=== PATIENT | female | born 1995 | race African-American/Black ===

== ENCOUNTER 2017-11-05 09:52 | Emergency (ER) | payer MEDICAID, OTHER ==
[~2017-11-05] VITALS: Ht 160 cm; Wt 85.0 kg
[~2017-11-05 09:52] MED LIST: VICODIN
[2017-11-05 11:24] VITALS: BP 113/34
[2017-11-05] MEDS ORDERED: SODIUM CHLORIDE 0.9% 1,000 ML IV ONE (11:29)
[2017-11-05] MEDS ORDERED: METOCLOPRAMIDE HCL 10MG/2ML VIAL IV ONE (11:30)
[2017-11-05] MEDS ORDERED: ACETAMINOPHEN 325MG TABLET PO ONE (11:45)
[2017-11-05 11:48] LABS: BASOPHILS % 0.6 % (0.0-2.0); EOSINOPHILS % 1.5 % (0.0-5.0); HEMOGLOBIN. 11.8 g/dL (12.0-16.0); LYMPHOCYTES % 31.4 % (20.0-50.0); MEAN CORPUSCULAR HEMOGLOBIN 31.5 pg (28.0-32.0); MEAN CORPUSCULAR VOLUME 91.2 fL (81.0-99.0); MEAN PLATELET VOLUME 8.1 fl (7.4-10.4); MONOCYTES % 7.6 % (2.0-8.0); NEUTROPHILS % 58.9 % (40.0-76.0); PLATELET 249 x1000/uL (130-400); RED BLOOD CELL COUNT 3.73 mill/uL (4.2-5.4); RED CELL DISTRIBUTION WIDTH 13.1 % (11.6-14.6)
[2017-11-05] MEDS ORDERED: ERYTHROMYCIN LACTOBIONATE 500 MG in SODIUM CHLORIDE 0.9% 100 ML IV STA (11:48)
[2017-11-05 11:54] LABS: CHLORIDE 106 mEq/L (98-107)
[2017-11-05 11:55] LABS: INR 1.1; PROTHROMBIN TIME 11.5 sec (9.4-11.6)
[2017-11-05] MEDS ORDERED: SUMATRIPTAN SUCCINATE 6MG/0.5ML VIAL SUBCUT ONE (12:00)
[2017-11-05 12:19] LABS: B-HCG QUANTITATIVE 19364 mIU/mL (<3)
[2017-11-05 13:49] LABS: CLARITY URINE CLEAR (CLEAR); COLOR URINE YELLOW (YELLOW); KETONES URINE NEGATIVE (NEGATIVE); LEUKOCYTE ESTERASE URINE TRACE (NEGATIVE); NITRITE URINE NEGATIVE (NEGATIVE); OCCULT BLOOD URINE NEGATIVE (NEGATIVE); PH URINE 8.5 (4.5-8.0); PROTEIN URINE NEGATIVE (NEGATIVE); SPECIFIC GRAVITY URINE 1.017 (1.005-1.030); UROBILINOGEN URINE 0.2 E.U./dL (0.2-1.0)
== END 2017-11-05 15:00 | disposition home or self-care (01) ==
LOC: ER 10:33
DX: O26.891 Other specified pregnancy related conditions, first trimester (principal); R51 Headache; R42 Dizziness and giddiness; R10.9 Unspecified abdominal pain; Z3A.11 11 weeks gestation of pregnancy; Z87.440 Personal history of urinary (tract) infections; K92.1 Melena; O99.611 Diseases of the digestive system complicating pregnancy, first trimester; K92.89 Other specified diseases of the digestive system
CPT/HCPCS: 36415; 80053; 81001; 83690; 84702; 85025; 85610; 87086; 96360; 99284; J2765; J7030; Z7610; J1364; J7050

== ENCOUNTER 2018-01-11 12:23 | Observation (INO) | payer MEDICAID ==
[~2018-01-11] VITALS: Ht 160 cm; Wt 84.8 kg
[2018-01-11] MEDS ORDERED: LACTATED RINGERS 1,000 ML IV SCH (12:37)
[2018-01-11 13:27] LABS: CLARITY URINE CLOUDY (CLEAR); COLOR URINE DARK YELLOW (YELLOW); KETONES URINE 3+ (NEGATIVE); LEUKOCYTE ESTERASE URINE 2+ (NEGATIVE); NITRITE URINE NEGATIVE (NEGATIVE); OCCULT BLOOD URINE NEGATIVE (NEGATIVE); PROTEIN URINE TRACE (NEGATIVE); SPECIFIC GRAVITY URINE 1.027 (1.005-1.030)
[2018-01-11] MEDS ORDERED: PNV1TABL76 MT (14:27)
== END 2018-01-11 14:30 | disposition home or self-care (01) ==
LOC: L&D 12:23
PROVIDERS: ADMIT Specialist; ATTEND Specialist
DX: O26.892 Other specified pregnancy related conditions, second trimester (principal); R10.30 Lower abdominal pain, unspecified; Z3A.21 21 weeks gestation of pregnancy
CPT/HCPCS: 81003; 87086; 99281; G0378; J7120

== ENCOUNTER 2018-04-11 02:32 | Inpatient (IN) | payer OTHER ==
[~2018-04-11] VITALS: Ht 157.5 cm; Wt 87.1 kg
[~2018-04-11 02:32] MED LIST changes: +PNV1TABL76 MT; -VICODIN
[2018-04-11] MEDS ORDERED: TERBUTALINE SULFATE 1MG/ML VIAL SUBCUT PRN (03:00)
[2018-04-11] MEDS: LACTATED RINGERS 1,000 ML IV SCH ×2 (03:20→14:19)
[2018-04-11 03:58] LABS: BASOPHILS % 0.7 % (0.0-2.0); EOSINOPHILS % 1.4 % (0.0-5.0); HEMATOCRIT. 30.4 % (36.0-48.0); HEMOGLOBIN. 10.5 g/dL (12.0-16.0); LYMPHOCYTES % 21.4 % (20.0-50.0); MEAN CORPUSCULAR HEMOGLOBIN 32.4 pg (28.0-32.0); MEAN CORPUSCULAR VOLUME 93.9 fL (81.0-99.0); MEAN PLATELET VOLUME 8.8 fl (7.4-10.4); MONOCYTES % 9.6 % (2.0-8.0); NEUTROPHILS % 66.9 % (40.0-76.0); PLATELET 336 x1000/uL (130-400); RED BLOOD CELL COUNT 3.24 mill/uL (4.2-5.4); RED CELL DISTRIBUTION WIDTH 13.1 % (11.6-14.6)
[2018-04-11 04:04] LABS: CLARITY URINE CLEAR (CLEAR); COLOR URINE YELLOW (YELLOW); KETONES URINE 3+ (NEGATIVE); LEUKOCYTE ESTERASE URINE 1+ (NEGATIVE); NITRITE URINE NEGATIVE (NEGATIVE); OCCULT BLOOD URINE NEGATIVE (NEGATIVE); PH URINE 6.5 (4.5-8.0); PROTEIN URINE NEGATIVE (NEGATIVE); SPECIFIC GRAVITY URINE 1.024 (1.005-1.030)
[2018-04-11 04:12] LABS: PARTIAL THROMBOPLASTIN TIME 27.1 sec (23.4-31.0); PROTHROMBIN TIME 10.5 sec (9.4-11.6)
[2018-04-11] MEDS ORDERED: BETAMETHASONE ACET/BETAMET 30 MG/5 ML VIAL IM SCH (04:28)
[2018-04-11] MEDS ORDERED: MAGNESIUM 20 G PREMIX (L & D) 500 ML IV SCH ×2 (04:30→04:47)
[2018-04-11 04:38] LABS: *AMPHETAMINES SCREEN URINE NEGATIVE (NEGATIVE); *BARBITURATES SCREEN URINE NEGATIVE (NEGATIVE); *BENZODIAZEPINES SCREEN URINE NEGATIVE (NEGATIVE); *COCAINE SCREEN URINE NEGATIVE (NEGATIVE)
[2018-04-11 04:39] LABS: METHADONE URINE SCREEN NEGATIVE (NEGATIVE); OPIATES URINE SCREEN NEGATIVE (NEGATIVE); PHENCYCLIDINE URINE SCREEN NEGATIVE (NEGATIVE)
[2018-04-11 04:40] LABS: CANNABINOID URINE SCREEN PRESUMTIVE POSITIVE (NEGATIVE)
[2018-04-11] MEDS ORDERED: MAGNESIUM 20 G PREMIX (L & D) 500 ML IV ONE ×2 (04:41→05:00)
[2018-04-11] MEDS ORDERED: AMPICILLIN 2,000 MG in SODIUM CHLORIDE 0.9% 100 ML IV SCH (05:00)
[2018-04-11] MEDS ORDERED: CITRIC ACID/SODIUM CITRATE SOLN 30ML UDC PO SCH (05:30)
[2018-04-11] MEDS ORDERED: DEXT 5%/LR + PITOCIN 20UNITS/L 1,000 ML IV SCH (07:25)
[2018-04-11] MEDS ORDERED: IBUPROFEN 400MG TABLET PO PRN (07:30)
[2018-04-11] MEDS ORDERED: RHO(D) IMMUNE GLOBULIN 300 MCG/SYR IM PRN (07:30)
[2018-04-11] MEDS ORDERED: ONDANSETRON HCL 4MG/2ML VIAL IV PRN (07:30)
[2018-04-11] MEDS ORDERED: HYDROCODONE/ACETAMINOPHEN 5/325MG TABLET PO PRN ×2 (07:30)
[2018-04-11] MEDS ORDERED: KETOROLAC 30MG/ML VIAL IV PRN (07:45)
[2018-04-11] MEDS ORDERED: DIPHENHYDRAMINE 50MG/ML VIAL IV PRN (07:45)
[2018-04-11] MEDS ORDERED: BUTORPHANOL TARTRATE 2 MG/ML VIAL IV PRN (07:45)
[2018-04-11] MEDS ORDERED: NALOXONE HCL 0.4 MG/ML 1ML VIAL IV PRN (07:45)
[2018-04-11] MEDS: PRENATAL VIT/FE FUMARATE/FA TABLET PO SCH (09:00)
[2018-04-11 10:44] VITALS: BP 96/43
[2018-04-11 11:11] LABS: HEPATITIS B SURFACE ANTIGEN NEGATIVE
[2018-04-11 12:19] VITALS: BP 106/51
[2018-04-11 16:18] VITALS: BP 102/55
[2018-04-11 20:00] VITALS: BP 101/44
[2018-04-12] VITALS: BP 103/52
[2018-04-12 04:00] VITALS: BP 104/50
[2018-04-12 07:26] LABS: BASOPHILS % 0.1 % (0.0-2.0); EOSINOPHILS % 0.1 % (0.0-5.0); HEMATOCRIT. 27.5 % (36.0-48.0); HEMOGLOBIN. 9.4 g/dL (12.0-16.0); LYMPHOCYTES % 9.3 % (20.0-50.0); MEAN CORPUSCULAR HEMOGLOBIN 32.2 pg (28.0-32.0); MEAN CORPUSCULAR VOLUME 94.9 fL (81.0-99.0); MEAN PLATELET VOLUME 8.5 fl (7.4-10.4); MONOCYTES % 8.2 % (2.0-8.0); NEUTROPHILS % 82.3 % (40.0-76.0); PLATELET 297 x1000/uL (130-400); RED CELL DISTRIBUTION WIDTH 13.1 % (11.6-14.6)
[2018-04-12 07:47] VITALS: BP 103/54
[2018-04-12] MEDS: PRENATAL VIT/FE FUMARATE/FA TABLET PO SCH (09:10)
[2018-04-12] MEDS ORDERED: METRONIDAZOLE 500MG TABLET PO SCH (10:15)
== END 2018-04-12 12:20 | disposition home or self-care (01) | DRG 540 ==
LOC: OBSVTOIN 02:32 → L&D 02:32 → 7EST PP/OB 11:00
PROVIDERS: ADMIT Obstetrics & Gynecology; ATTEND Obstetrics & Gynecology
PROC: 10D00Z1 Extraction of Products of Conception, Low, Open Approach (ICD-10-PCS; principal; 2018-04-11 05:52)
DX: O42.913 Preterm premature rupture of membranes, unspecified as to length of time between rupture and onset of labor, third trimester (principal); O60.03 Preterm labor without delivery, third trimester; D62 Acute posthemorrhagic anemia; O98.33 Other infections with a predominantly sexual mode of transmission complicating the puerperium; O99.12 Other diseases of the blood and blood-forming organs and certain disorders involving the immune mechanism complicating childbirth; A59.9 Trichomoniasis, unspecified; O32.1XX0 Maternal care for breech presentation, not applicable or unspecified; O90.81 Anemia of the puerperium; D72.829 Elevated white blood cell count, unspecified; Z37.0 Single live birth; Z3A.34 34 weeks gestation of pregnancy
CPT/HCPCS: 36415; 76805; 76818; 80305; 80349; 81003; 83735; 85025; 85610; 85730; 86592; 86703; 86762; 86850; 86900; 87340; 88307; J0290; J0595; J0702; J1885; J2590; J3105; J3475; J7050; J7120

== ENCOUNTER 2018-04-16 03:07 | Emergency (ER) | payer OTHER ==
[~2018-04-16] VITALS: Ht 157.5 cm; Wt 89.0 kg
[2018-04-16 05:13] LABS: CLARITY URINE CLEAR (CLEAR); COLOR URINE YELLOW (YELLOW); KETONES URINE NEGATIVE (NEGATIVE); LEUKOCYTE ESTERASE URINE 1+ (NEGATIVE); NITRITE URINE NEGATIVE (NEGATIVE); OCCULT BLOOD URINE 3+ (NEGATIVE); PROTEIN URINE NEGATIVE (NEGATIVE); SPECIFIC GRAVITY URINE 1.013 (1.005-1.030); UROBILINOGEN URINE 0.2 E.U./dL (0.2-1.0)
[2018-04-16] MEDS ORDERED: LIDOCAINE HCL 2% JELLY 5ML TOP ONE ×2 (06:45→08:30)
[2018-04-16] MEDS ORDERED: HYDROCODONE/ACETAMINOPHEN 5/325MG TABLET PO ONE (06:45)
[2018-04-16] MEDS ORDERED: NA PHOS,M-B/NA PHOS,DI-BA ENEMA 118ML PR ONE (07:15)
[2018-04-16 07:37] LABS: CHLORIDE 109 mEq/L (98-107)
[2018-04-16 07:40] LABS: BASOPHILS % 0.7 % (0.0-2.0); EOSINOPHILS % 2.5 % (0.0-5.0); HEMATOCRIT. 31.7 % (36.0-48.0); HEMOGLOBIN. 10.7 g/dL (12.0-16.0); LYMPHOCYTES % 35.2 % (20.0-50.0); MEAN CORPUSCULAR HEMOGLOBIN 32.2 pg (28.0-32.0); MEAN CORPUSCULAR VOLUME 95.5 fL (81.0-99.0); MEAN PLATELET VOLUME 7.6 fl (7.4-10.4); MONOCYTES % 8.8 % (2.0-8.0); NEUTROPHILS % 52.8 % (40.0-76.0); PLATELET 368 x1000/uL (130-400); RED BLOOD CELL COUNT 3.32 mill/uL (4.2-5.4)
[2018-04-16 08:05] VITALS: BP 121/68
== END 2018-04-16 08:22 | disposition home or self-care (01) ==
LOC: ER 03:07
DX: G89.18 Other acute postprocedural pain (principal); K64.4 Residual hemorrhoidal skin tags; K59.00 Constipation, unspecified; F17.200 Nicotine dependence, unspecified, uncomplicated; Z98.890 Other specified postprocedural states
CPT/HCPCS: 36415; 80048; 81003; 85025; 99284

== ENCOUNTER 2018-04-17 08:33 | Emergency (ER) | payer OTHER ==
[~2018-04-17] VITALS: Ht 165.1 cm; Wt 87.0 kg
[2018-04-17] MEDS ORDERED: MORPHINE SULFATE 4 MG/ML CPJ (NOT FOR IM USE) IV STA (09:12)
[2018-04-17] MEDS ORDERED: SODIUM CHLORIDE 0.9% 1,000 ML IV ONE (09:12)
[2018-04-17] MEDS ORDERED: ONDANSETRON HCL 4MG/2ML VIAL IV STA (09:12)
[2018-04-17] MEDS ORDERED: LORAZEPAM 2MG/ML CPJ IV ONE (09:30)
[2018-04-17 09:40] LABS: BASOPHILS % 1.1 % (0.0-2.0); EOSINOPHILS % 2.8 % (0.0-5.0); HEMATOCRIT. 30.9 % (36.0-48.0); HEMOGLOBIN. 10.6 g/dL (12.0-16.0); LYMPHOCYTES % 35.6 % (20.0-50.0); MEAN CORPUSCULAR HEMOGLOBIN 32.3 pg (28.0-32.0); MEAN CORPUSCULAR VOLUME 94.3 fL (81.0-99.0); MEAN PLATELET VOLUME 7.4 fl (7.4-10.4); MONOCYTES % 9.8 % (2.0-8.0); NEUTROPHILS % 50.7 % (40.0-76.0); PLATELET 344 x1000/uL (130-400); RED BLOOD CELL COUNT 3.27 mill/uL (4.2-5.4)
[2018-04-17 09:46] LABS: CHLORIDE 111 mEq/L (98-107)
[2018-04-17] MEDS ORDERED: LIDOCAINE HCL 1% 20ML VIAL (Pyxis) INJ MC ONE (11:00)
[2018-04-17 11:47] VITALS: BP 121/85
== END 2018-04-17 11:55 | disposition home or self-care (01) ==
LOC: ER 08:41
DX: G89.18 Other acute postprocedural pain (principal); R10.2 Pelvic and perineal pain; K64.4 Residual hemorrhoidal skin tags; F17.200 Nicotine dependence, unspecified, uncomplicated; Z98.890 Other specified postprocedural states
CPT/HCPCS: 36415; 76857; 80053; 83690; 85025; 96361; 96374; 96375; 99285; J2060; J2270; J2405; J3490; J7030; Z7610

== ENCOUNTER 2018-10-30 12:10 | Emergency (ER) | payer OTHER ==
[~2018-10-30] VITALS: Ht 157.5 cm; Wt 83.0 kg
[2018-10-30 12:49] VITALS: BP 105/63
== END 2018-10-30 17:40 | disposition left against medical advice (07) ==
LOC: ER 12:10
DX: M79.674 Pain in right toe(s) (principal); Z53.21 Procedure and treatment not carried out due to patient leaving prior to being seen by health care provider

== ENCOUNTER 2019-02-11 09:11 | Observation (INO) | payer MEDICAID ==
[~2019-02-11] VITALS: Ht 160 cm; Wt 84.4 kg
[2019-02-11] MEDS ORDERED: PREN1TAB78 MT (09:22)
[2019-02-11] MEDS ORDERED: ACETAMINOPHEN 500MG TABLET PO NR (10:00)
[2019-02-11] MEDS ORDERED: LACTATED RINGERS 1,000 ML IV SCH (10:00)
[2019-02-11 10:10] LABS: CLARITY URINE CLEAR (CLEAR); COLOR URINE YELLOW (YELLOW); KETONES URINE NEGATIVE (NEGATIVE); LEUKOCYTE ESTERASE URINE 1+ (NEGATIVE); NITRITE URINE NEGATIVE (NEGATIVE); OCCULT BLOOD URINE NEGATIVE (NEGATIVE); PH URINE >=9.0 (4.5-8.0); PROTEIN URINE NEGATIVE (NEGATIVE); SPECIFIC GRAVITY URINE 1.017 (1.005-1.030); UROBILINOGEN URINE 0.2 E.U./dL (0.2-1.0)
[2019-02-11] MEDS ORDERED: ONDANSETRON HCL 4MG/2ML INJ IV NR (12:00)
== END 2019-02-11 12:35 | disposition home or self-care (01) ==
LOC: 8 EST LDRP 09:11
PROVIDERS: ADMIT Obstetrics & Gynecology; ATTEND Obstetrics & Gynecology
DX: O26.892 Other specified pregnancy related conditions, second trimester (principal); G89.18 Other acute postprocedural pain; R10.30 Lower abdominal pain, unspecified; R63.0 Anorexia; R53.1 Weakness; O99.89 Other specified diseases and conditions complicating pregnancy, childbirth and the puerperium; M54.9 Dorsalgia, unspecified; Z3A.27 27 weeks gestation of pregnancy
CPT/HCPCS: 81003; 96374; 99281; G0378; J2405; 96360; 96361; 96372

== ENCOUNTER 2019-04-06 12:30 | Observation (INO) | payer MEDICAID ==
[~2019-04-06] VITALS: Ht 157.5 cm; Wt 90.7 kg
[~2019-04-06 12:30] MED LIST changes: -PNV1TABL76 MT; +PREN1TAB78 MT
[2019-04-06] MEDS ORDERED: DEXT 5%/LACTATED RINGERS 1,000 ML IV SCH (13:00)
[2019-04-06 13:06] LABS: CLARITY URINE CLOUDY (CLEAR); COLOR URINE YELLOW (YELLOW); KETONES URINE NEGATIVE (NEGATIVE); LEUKOCYTE ESTERASE URINE 2+ (NEGATIVE); NITRITE URINE NEGATIVE (NEGATIVE); OCCULT BLOOD URINE NEGATIVE (NEGATIVE); PROTEIN URINE NEGATIVE (NEGATIVE); SPECIFIC GRAVITY URINE 1.025 (1.005-1.030)
[2019-04-06 13:46] LABS: CHLORIDE 109 mEq/L (98-107)
[2019-04-06] MEDS ORDERED: CEFAZOLIN 2,000 MG in DEXT 5% WATER 100 ML IV SCH (14:00)
== END 2019-04-06 14:14 | disposition home or self-care (01) ==
LOC: 8 EST LDRP 12:30
PROVIDERS: ADMIT Obstetrics & Gynecology; ATTEND Obstetrics & Gynecology
DX: O26.893 Other specified pregnancy related conditions, third trimester (principal); R10.9 Unspecified abdominal pain; R19.7 Diarrhea, unspecified; N89.8 Other specified noninflammatory disorders of vagina; Z3A.35 35 weeks gestation of pregnancy
CPT/HCPCS: 36415; 80053; 81003; 96365; 99281; G0378; J0690; J7060; 96360